=== PATIENT | female | born 1960 | race African-American/Black ===

== ENCOUNTER 2024-05-22 15:02 | Emergency (ER) | payer OTHER ==
[~2024-05-22] VITALS: Ht 160 cm; Wt 110.0 kg
[2024-05-22 15:20] VITALS: TEMP 98.3; O2SAT 98
[2024-05-22 16:08] LABS: BASOPHILS % 0.6 % (0.0-2.0); EOSINOPHILS % 1.5 % (0.0-5.0); HEMATOCRIT. 37.5 % (36.0-48.0); HEMOGLOBIN. 12.4 g/dL (12.0-16.0); LYMPHOCYTES % 26.2 % (20.0-50.0); MEAN CORPUSCULAR HGB CONC 33.1 g/dL (31.0-37.0); MEAN CORPUSCULAR VOLUME 84.4 fL (81.0-99.0); MONOCYTES % 10.5 % (2.0-8.0); NEUTROPHILS % 61.2 % (40.0-76.0); PLATELET 410 x1000/uL (130-400); RED BLOOD CELL COUNT 4.44 mill/uL (4.2-5.4); RED CELL DISTRIBUTION WIDTH 14.2 % (11.6-14.6); WHITE BLOOD COUNT 8.4 x1000/uL (4.5-11.0)
[2024-05-22 16:13] LABS: CHLORIDE 105 mEq/L (98-107); POTASSIUM 4.1 mEq/L (3.5-5.1); SODIUM 140 mEq/L (136-145)
[2024-05-22 16:14] LABS: CARBON DIOXIDE 29 mEq/L (21-32)
[2024-05-22 16:15] LABS: CALCIUM 9.2 mg/dL (8.7-10.4)
[2024-05-22 16:19] LABS: CREATININE 0.9 mg/dL (0.6-1.0); GLUCOSE 96 mg/dL (70-105); UREA NITROGEN BLOOD 10 mg/dL (9-23)
[2024-05-22] MEDS ORDERED: CEPH500C2 MT (19:22)
[2024-05-22] MEDS: AMLODIPINE 5MG TABLET PO ONE (20:34)
[2024-05-22 21:51] VITALS: BP 192/74; PULSE 68; RESP 20; O2SAT 100
== END 2024-05-22 22:00 | disposition home or self-care (01) ==
LOC: ER 15:02
DX: M79.89 Other specified soft tissue disorders (principal); M79.604 Pain in right leg; I10 Essential (primary) hypertension
CPT/HCPCS: 36415; 80048; 85025; 93971; 99284